=== PATIENT | male | born 1945 | race Caucasian/White ===

== ENCOUNTER → 2017-08-23 | Outpatient (CLI) | payer OTHER ==
[~2017-08-23] MED LIST: HYDACE5 PO; IBUP600; Super Energy1 EACH
[2017-08-24 14:11] LABS: Stool Occult Bld Immuno 1 Negative (NEGATIVE)
== END | disposition home or self-care (01) ==
LOC: LAB 11:00 → LAB SHORT 11:00 → LAB FUT 08-15 12:40
PROVIDERS: Family Medicine
DX: Z12.11 Encounter for screening for malignant neoplasm of colon (principal)
CPT/HCPCS: G0328

== ENCOUNTER → 2018-11-11 | Outpatient (CLI) | payer OTHER | END | disposition home or self-care (01) | LOC: LAB 06:00 → LAB SHORT 06:00 → LAB FUT 11-07 13:55 | PROVIDERS: Family Medicine | DX: T56.0X1A Toxic effect of lead and its compounds, accidental (unintentional), initial encounter (principal); R20.2 Paresthesia of skin; R79.9 Abnormal finding of blood chemistry, unspecified; H93.19 Tinnitus, unspecified ear | CPT/HCPCS: 81050; 82175; 82570; 83655; 83825 ==

== ENCOUNTER → 2019-07-13 | Outpatient (CLI) | payer OTHER | END | disposition home or self-care (01) | LOC: LAB SHORT 09:30 → PLD 09:30 | DX: L57.0 Actinic keratosis (principal) | CPT/HCPCS: 88305 ==

== ENCOUNTER 2020-09-02 09:54 | Day surgery (SDC) | payer OTHER ==
[~2020-09-02] VITALS: Ht 175.3 cm; Wt 71.6 kg
[~2020-09-02 09:54] MED LIST changes: +MOTOFEN
== END 2020-09-02 12:20 | disposition home or self-care (01) ==
LOC: ORSCSDS 09:54
PROVIDERS: Internal Medicine Gastroenterology
PROC: 0DBH8ZX Excision of Cecum, Via Natural or Artificial Opening Endoscopic, Diagnostic (ICD-10-PCS; principal; 2020-09-02 11:15)
PROC: 0DBK8ZX Excision of Ascending Colon, Via Natural or Artificial Opening Endoscopic, Diagnostic (ICD-10-PCS; principal; 2020-09-02 11:15)
DX: R19.7 Diarrhea, unspecified (principal); D12.0 Benign neoplasm of cecum; D12.2 Benign neoplasm of ascending colon; K64.8 Other hemorrhoids; K57.30 Diverticulosis of large intestine without perforation or abscess without bleeding; I10 Essential (primary) hypertension; B19.20 Unspecified viral hepatitis C without hepatic coma; K63.89 Other specified diseases of intestine; Z87.891 Personal history of nicotine dependence; Z79.899 Other long term (current) drug therapy
CPT/HCPCS: 88305; J2250; J2704; J7120

== ENCOUNTER 2021-09-04 14:22 | Emergency (ER) | payer OTHER ==
[~2021-09-04] VITALS: Ht 175.3 cm; Wt 68.0 kg
[2021-09-04 18:52] LABS: Influenza A, PCR NEGATIVE (NEGATIVE); Influenza B, PCR NEGATIVE (NEGATIVE); Resp Syncytial Virus, PCR NEGATIVE (NEGATIVE)
[2021-09-04 19:20] LABS: SARS-Cov-2 (COVID-19) PCR, MMC POSITIVE (NEGATIVE)
== END 2021-09-04 18:42 | disposition short-term general hospital (02) ==
LOC: ER 14:22
PROVIDERS: Student in an Organized Health Care Education/Training Program
DX: S12.01XA Stable burst fracture of first cervical vertebra, initial encounter for closed fracture (principal); S12.110A Anterior displaced Type II dens fracture, initial encounter for closed fracture; S01.01XA Laceration without foreign body of scalp, initial encounter; U07.1 COVID-19; W18.30XA Fall on same level, unspecified, initial encounter; Z98.1 Arthrodesis status
CPT/HCPCS: 0241U; 70450; 72125; J1170; J1885; J2405; J2765; J3010